=== PATIENT | female | born 1980 | race Caucasian/White ===

== ENCOUNTER 2019-12-27 15:22 | Inpatient (IN) | payer BC ==
[2019-12-27] MEDS ORDERED: Lactated Ringers 1,000 ML IV SCH (18:45)
[2019-12-27] MEDS ORDERED: Oxytocin/Normal Saline 30 UNIT/500 ML BAG IV SCH (18:45)
--- NOTE | 2019-12-27 19:38 | PCM.LDHP ---
L&D History of Present Illness - General Date of Service: 12/27/19 (admit H&P) Admit Problem/Dx: Admission Diagnosis/Problem Admission Diagnosis/Problem Source of Information: Patient, Family, Old Records, Provider, RN History Limitations: Reports: No Limitations - History of Present Illness Introduction:: Trixie is a delightful 39yo WF @ 38 weeks with high risk pregnancies presented to clinic this afternoon cervix advanced cervical dilation @ 5cm, thin, BBOW, with cxns Hx shoulder dystocia. subsequently admitted to L&D. A negative GBS negative baby active no other concerns Timing/Duration: Reports: gradual onset, intermittent, getting worse Location, : Reports: Uterus Quality: Reports: Dull, Pressure Severity: Mild Improves with: Reports: Movement Associated Symptoms: Reports: vaginal discharge - Related Data Allergies/Adverse Reactions: Allergies Allergy/AdvReac Type Severity Reaction Status Date / Time hydrocodone Allergy Nausea and Verified 12/27/19 16:48 Vomiting oxycodone Allergy Nausea and Verified 12/27/19 16:48 Vomiting seasonal Allergy Other Uncoded 12/27/19 16:48 Home Medications: Home Meds Ascorbic Acid [Vitamin C] 500 mg PO DAILY 12/27/19 [History] Ferrous Sulfate 325 mg PO DAILY 12/27/19 [History] Vit with Ca/FA/Iron [ Plus Iron] 1 tab PO DAILY 12/27/19 [History] Past 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 History 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: : 4 Para: 3 LMP (Approximate): Other OB/BYN History: hx of shoulder dystocia Hematologic History: Reports: Anemia - Past Surgical History HEENT Surgical History: Reports: Other (See Below) Other HEENT Surgeries/Procedures: wisdom teeth extraction Social & Family History - Family History Family Medical History: Noncontributory - Tobacco Use Smoking Status *Q: Never Smoker Second Hand Smoke Exposure: No - Caffeine Use Caffeine Use: Reports: Coffee - Recreational Drug Use Recreational Drug Use: No - Living Situation & Occupation Living situation: Reports: Occupation: Employed (lives with Gerardo, children--daughter and 2 sons, expecting another boy. just moved into new house. has great neighbors.) H&P Review of Systems - Review of Systems: Review Of Systems: Comprehensive ROS is negative, except as noted in HPI. L&D Exam - Exam Exam: See Below - Vital Signs Vital Signs: Last Vital Signs Temp 98.1 F 12/27/19 17:35 Pulse 79 12/27/19 19:00 Resp 16 12/27/19 19:00 BP 99/69 12/27/19 19:00 Pulse Ox Weight: 210 lb - OB Specific Contraction Duration (sec): 50-70 Contraction Frequency (min): 4-5 Contraction Intensity: Moderate - Persaud Score Persaud Score Cervix Position: Midposition Persaud Score Consistency: Soft Persaud Score Effacement: 51-70% Persaud Score Dilation: > 5 cm Persaud Score 's Station: -2 Persaud Score Total: 9 - Exam General: Alert, Oriented HEENT: PERRLA, Conjunctiva Clear, EACs Clear, EOMI, Hearing Intact, Mucosa Moist & [place], Nares Patent, Normal Nasal Septum, Posterior Pharynx Clear, TMs Clear Neck: Supple, Trachea Midline Lungs: Clear to Auscultation, Normal Respiratory Effort Cardiovascular: Regular Rate, Regular Rhythm GI/Abdominal Exam: Normal Bowel Sounds, Soft, Non-Tender, No Organomegaly, No D istention, No Abnormal Bruit, No Mass, Pelvis Stable Rectal Exam: Normal Exam Genitourinary: Normal external exam, Cervical dilitation, Enlarged uterus Back Exam: Normal Inspection, Full Range of Motion Extremities: Normal Inspection, Normal Range of Motion, Non-Tender, No Pedal Edema, Normal Capillary Refill Skin: Warm, Dry, Intact Neurological: Cranial Nerves Intact, Reflexes Equal Bilateral Psychiatric: Alert, Normal Affect, Normal Mood - Patient Data Lab Results Last 24 hrs: Laboratory Results - last 24 hr 12/27/19 12/27/19 Range/Units 15:45 16:25 WBC 9.1 (5.0-10.0) 10^3/uL RBC 3.93 L (4.2-5.4) 10^6/uL Hgb 12.5 (12.0-16.0) g/dL Hct 36.1 L (37.0-47.0) % MCV 91.9 (80-100) fL MCH 31.8 (27.0-34.0) pg MCHC 34.6 (33.0-35.0) g/dL Plt Count 265 (150-450) 10^3/uL COVID-19 (YOSSI) Negative (NEGATIVE) Result Diagrams: 12/27/19 16:25 - Problem List (1) Term SNOMED Code(s): 88304387 ICD Code: Z34.90 - ENCNTR FOR SUPRVSN OF NORMAL , UNSP, UNSP TRIMESTER Status: Acute Current Visit: Yes (2) Blood type A- SNOMED Code(s): 069999846 ICD Code: Z67.11 - TYPE A BLOOD, RH NEGATIVE Status: Acute Current Visit: Yes (3) Group B Streptococcus not isolated SNOMED Code(s): 615468564 ICD Code: AAC8195 - Status: Acute Current Visit: Yes (4) Rubella immune SNOMED Code(s): 540851601 ICD Code: Z78.9 - OTHER SPECIFIED HEALTH STATUS Status: Acute Current Visit: Yes (5) AMA (advanced maternal age) multigravida 35+ SNOMED Code(s): 464504126 ICD Code: O09.529 - SUPERVISION OF ELDERLY MULTIGRAVIDA, UNSPECIFIED TRIMESTER Status: Acute Current Visit: Yes (6) High risk due to history of previous obstetrical problem SNOMED Code(s): 15955767, 681389460 ICD Code: O09.299 - SUPRVSN OF PREG W POOR REPRODCTV OR OBSTET HISTORY, UNSP TRI Status: Acute Current Visit: Yes (7) High risk , multigravida of advanced maternal age SNOMED Code(s): 892621196, 754561698 ICD Code: O09.529 - SUPERVISION OF ELDERLY MULTIGRAVIDA, UNSPECIFIED TRIMESTER Status: Acute Current Visit: Yes (8) High-risk SNOMED Code(s): 28661846 ICD Code: O09.90 - SUPERVISION OF HIGH RISK , UNSP, UNSP TRIMESTER Status: Acute Current Visit: Yes Problem List Initiated/Reviewed/Updated: Yes Orders Last 24hrs: Active Orders 24 hr Category Date Time Status Lactated Ringers [Ringers, Lactated] 1,000 ml Med 12/27/19 18:45 Active IV ASDIRECTED Oxytocin/Normal Saline [Pitocin in NS 30 UNIT/500 ML] Med 12/27/19 18:45 Active 30 unit in 500 ml IV TITRATE Medication Orders Lactated Ringer's (Ringers, Lactated) 1,000 mls @ 125 mls/hr IV ASDIRECTED ELIER Last Admin: 12/27/19 18:10 Dose: 125 mls/hr Documented by: CHANDAN Oxytocin/Sodium Chloride (Pitocin In Ns 30 Unit/500 Ml) 30 unit in 500 mls @ 2 mls/hr IV TITRATE ELIER; Protocol Last Titration: 12/27/19 19:01 Dose: 4 munits/min, 4 mls/hr Documented by: Admin: 12/27/19 18:10 Dose: 2 munits/min, 2 mls/hr Documented by: CHANDAN Assessment/Plan Comment:: Assessment: 39yo @ 37w6d AMA high risk RI GBS negative blood type A negative advanced cervical dilation early labor Hx shoulder dystocia NST reactive/reassuring COVID negative on admit. hgb and PLT WNL Plan: admit as discussed in clinic AROM carried out with return of clear fluid pitocin IV to optimize labor pattern consider intrathecal as discussed. anticipate vaginal delivery. all questions answered. hmb
[2019-12-27] MEDS ORDERED: Ondansetron 4 MG/2 ML SDV IVPUSH PRN (21:36)
[2019-12-27] MEDS ORDERED: fentaNYL 100 MCG/2 ML SDV IVPUSH PRN (21:36)
[2019-12-27] MEDS ORDERED: Tranexamic Acid 1,000 MG in Sodium Chloride 0.9% 100 ML IV PRN (22:54)
[2019-12-27] MEDS ORDERED: Sodium Chloride 0.9% 10 ML Syringe FLUSH PRN (22:54)
[2019-12-27] MEDS ORDERED: Acetaminophen 325 MG Tab PO PRN (22:54)
[2019-12-27] MEDS ORDERED: Benzocaine/Menthol 20%-0.5% Spray 56 GM Canister TOP PRN (22:54)
[2019-12-27] MEDS ORDERED: Misoprostol 400 MCG (4 X 100 MCG TAB) RECTAL PRN (22:54)
[2019-12-27] MEDS ORDERED: Zolpidem 5 MG Tab PO PRN (22:54)
[2019-12-27] MEDS ORDERED: Carboprost Tromethamine 250 MCG/1 ML Amp IM PRN (22:54)
[2019-12-27] MEDS ORDERED: Simethicone 80 MG Tab.Chew PO PRN (22:54)
--- NOTE | 2019-12-27 23:07 | PCM.DEL ---
L & D Note - General Info Date of Service: 12/27/19 (Time of delivery 7857) Mother's Due Date: 01/11/20 (37w6d) - Delivery Note Labor: Spontaneous, Augmented by ARM, Augmented by Oxytocin Delivery Outcome: Livebirth Delivery Method: Spontaneous Vaginal Delivery-Single Delivery Mode: Spontaneous Presentation: Right Occiput Anterior (FRANCIS) Nuchal Cord: Reduced Prep: Povidone-Iodine (Betadine Anesthesia Type: None, Nitrous Oxide, Other (see below) (IV fentanyl) Amniotic Fluid Description: Clear Episiotomy Type: None Laceration: None Placenta: Intact, Expressed Cord: 3 Vessels Estimated Blood Loss: 300 Resuscitation Needed: No [place]: Suctioned, Bulb Syringe, Stimulated, Warmed, [place] Used Provider: Shawna Schwartz Score 1 min: 8 Score 5 min: 9 Second Stage Interventions: Reports: Encouragement Given, Pushing Effectively, Pushing, Pulls Own Legs Back Delivery Comments (Free Text/Narrative):: Trixie progressed to complete dilation and had a strong urge to push. was pushing in [place] position, and pulled her own legs back, which was helpful with her hx of shoulder dystocia. vertex delivered FRANCIS with one loop of nuchal cord easily reduced. left anterior shoulder slipped under the pubic bone with assistance from me and mother pushing effectively, followed by remainder of the baby boy. he was dried and stimulated and delivered to mother's chest for skin to skin contact/bonding. strong cry. cord doubly clamped, then cut by Trixie. cord blood sample obtained and order placed to be sent for cord blood work-up. placenta delivered intact with trailing membranes and was inspected and found to be complete with central cord insertion. examination of the perineum shows it to be intact. EBL 300cc fundus firm and pitocin infusing per protocol mom and baby both doing well. will follow and nursery routines. no complications. hmb Induction Criteria - Persaud Score Persaud Score Dilation: > 5 cm Persaud Score Effacement: 60-70% Persaud Score 's Station: -2 Persaud Score Consistency: Soft Persaud Score Cervix Position: Midposition Persaud Score Total: 9 Persaud Score Presenting Part: Reports: Cephalic - Induction Gestational Age >/= 39 wks: No Medical Indication: advanced cervical dilation, Hx shoulder dystocia, term, early labor/cxns, BBOW Estimated Pelvis: Reports: Adequate Reassuring Monitoring Strip: Yes Absence of Tachy Systole: Yes - Augmentation Estimated Pelvis: Reports: Adequate Weight Estimated:: Reports: AGA Reassuring Monitoring Strip: Yes Absence of Tachy Systole: Yes - General Info Date of Service: 12/27/19 (time of delivery 2216) - Patient Data Vitals - Most Recent: Last Vital Signs Temp 97.1 F 12/27/19 19:45 Pulse 67 12/27/19 19:45 Resp 16 12/27/19 19:45 BP 122/70 12/27/19 19:45 Pulse Ox Weight - Most Recent: 210 lb Lab Results Last 24 Hours: Laboratory Results - last 24 hr 12/27/19 12/27/19 Range/Units 15:45 16:25 WBC 9.1 (5.0-10.0) 10^3/uL RBC 3.93 L (4.2-5.4) 10^6/uL Hgb 12.5 (12.0-16.0) g/dL Hct 36.1 L (37.0-47.0) % MCV 91.9 (80-100) fL MCH 31.8 (27.0-34.0) pg MCHC 34.6 (33.0-35.0) g/dL Plt Count 265 (150-450) 10^3/uL COVID-19 (YOSSI) Negative (NEGATIVE) Med Orders - Current: Current Medications Acetaminophen (Tylenol) 650 mg PO Q6H PRN PRN Reason: mild pain or fever Benzocaine/Menthol (Dermoplast Pain Relief [place]) 0 gm TOP Q4H PRN PRN Reason: Perineal comfort measures Carboprost Tromethamine (Hemabate Ds) 250 mcg IM ASDIRECTED PRN PRN Reason: Excessive vaginal bleeding Docusate Sodium (Colace) 100 mg PO BID PRN PRN Reason: Constipation Fentanyl (Sublimaze) 50 mcg IVPUSH Q1H PRN PRN Reason: Pain Lactated Ringer's (Ringers, Lactated) 1,000 mls @ 125 mls/hr IV ASDIRECTED ELIER Last Admin: 12/27/19 18:10 Dose: 125 mls/hr Documented by: Oxytocin/Sodium Chloride (Pitocin In Ns 30 Unit/500 Ml) 30 unit in 500 mls @ 2 mls/hr IV TITRATE ELIER; Protocol Last Titration: 12/27/19 19:36 Dose: 6 munits/min, 6 mls/hr Documented by: Tranexamic Acid 1,000 mg/ (Sodium Chloride) 110 mls @ 660 mls/hr IV ONETIME PRN PRN Reason: Bleeding Ibuprofen (Motrin) 800 mg PO Q8H PRN PRN Reason: Mild Pain or Fever Misoprostol (Cytotec) 800 mcg RECTAL ONETIME PRN PRN Reason: Hemorrhage Ondansetron HCl (Zofran) 4 mg IVPUSH Q4H PRN PRN Reason: Nausea/Vomiting Prenat Multivit/Bates/Iron/Folic Ac ( Plus Iron) 1 each PO DAILY ELIER Simethicone (Simethicone) 80 mg PO Q4H PRN PRN Reason: Gas Sodium Chloride (Saline Flush) 10 ml FLUSH ASDIRECTED PRN PRN Reason: Keep Vein Open Witch Martina (Medi-Pads) 1 each TOP Q4HR PRN PRN Reason: Perineal Comfort Measure Zolpidem Tartrate (Ambien) 5 mg PO BEDTIME PRN PRN Reason: Insomnia - Problem List & Annotations (1) Term SNOMED Code(s): 17296350 Code(s): Z34.90 - ENCNTR FOR SUPRVSN OF NORMAL , UNSP, UNSP TRIMESTER Status: Acute Current Visit: Yes (2) Blood type A- SNOMED Code(s): 820210746 Code(s): Z67.11 - TYPE A BLOOD, RH NEGATIVE Status: Acute Current Visit: Yes (3) Group B Streptococcus not isolated SNOMED Code(s): 157717197 Code(s): ZYS4992 - Status: Acute Current Visit: Yes (4) Rubella immune SNOMED Code(s): 626054707 Code(s): Z78.9 - OTHER SPECIFIED HEALTH STATUS Status: Acute Current Visit: Yes (5) AMA (advanced maternal age) multigravida 35+ SNOMED Code(s): 673301594 Code(s): O09.529 - SUPERVISION OF ELDERLY MULTIGRAVIDA, UNSPECIFIED TRIMESTER Status: Acute Current Visit: Yes (6) High risk due to history of previous obstetrical problem SNOMED Code(s): 53745870, 310500611 Code(s): O09.299 - SUPRVSN OF PREG W POOR REPRODCTV OR OBSTET HISTORY, UNSP TRI Status: Acute Current Visit: Yes (7) High risk , multigravida of advanced maternal age SNOMED Code(s): 629510712, 051217565 Code(s): O09.529 - SUPERVISION OF ELDERLY MULTIGRAVIDA, UNSPECIFIED TRIMESTER Status: Acute Current Visit: Yes (8) High-risk SNOMED Code(s): 48438946 Code(s): O09.90 - SUPERVISION OF HIGH RISK , UNSP, UNSP TRIMESTER Status: Acute Current Visit: Yes (9) Vaginal delivery SNOMED Code(s): 726741347 Code(s): O80 - ENCOUNTER FOR FULL-TERM UNCOMPLICATED DELIVERY Status: Acute Current Visit: Yes (10) Mother currently breast-feeding SNOMED Code(s): 551688258 Code(s): Z39.1 - ENCOUNTER FOR CARE AND EXAMINATION OF LACTATING MOTHER Status: Acute Current Visit: Yes - Problem List Review Problem List Initiated/Reviewed/Updated: Yes - My Orders Last 24 Hours: My Active Orders 12/27/19 Breakfast Regular Diet [DIET] 12/27/19 Lunch Regular Diet [DIET] 12/27/19 Dinner Regular Diet [DIET] 12/27/19 18:45 Lactated Ringers [Ringers, Lactated] 1,000 ml IV ASDIRECTED Oxytocin/Normal Saline [Pitocin in NS 30 UNIT/500 ML] 30 unit in 500 ml IV TITRATE 12/27/19 21:29 Nitrous Oxide Delivery [RC] ASDIRECTED OB Discontinue Nitrous Oxide [RC] ASDIRECTED 12/27/19 21:36 Ondansetron [Zofran] 4 mg IVPUSH Q4H PRN fentaNYL [Sublimaze] 50 mcg IVPUSH Q1H PRN 12/27/19 22:54 [place] [RC] ASDIRECTED Consult to Manager Export [CONS] Routine Acetaminophen [TylenoL] 650 mg PO Q6H PRN Benzocaine/Menthol [Dermoplast Pain Relief [place]] See Dose Instructions TOP Q4H PRN Carboprost Tromethamine [Hemabate DS] 250 mcg IM ASDIRECTED PRN Docusate Sodium [Colace] 100 mg PO BID PRN Ibuprofen [Motrin] 800 mg PO Q8H PRN Simethicone 80 mg PO Q4H PRN Sodium Chloride 0.9% [Saline Flush] 10 ml FLUSH ASDIRECTED PRN Tranexamic Acid [Cyklokapron] 1,000 mg Sodium Chloride 0.9% [Normal Saline] 100 ml IV ONETIME Zolpidem [Ambien] 5 mg PO BEDTIME PRN miSOPROStoL [Cytotec] 800 mcg RECTAL ONETIME PRN witch Martina [Medi-Pads] 1 each TOP Q4HR PRN Assess Lochia [WOMSER] Per Unit Routine Assess Uterine Involution [WOMSER] Per Unit Routine Breast Pump [WOMSER] Per Unit Routine Ice Therapy [OM.PC] Per Unit Routine Perineal Care [OM.PC] Per Unit Routine Saline Lock Insert [OM.PC] Urgent Sitz Bath [OM.PC] Per Unit Routine Resuscitation Status Routine 12/27/19 22:55 Patient Status [ADT] Routine Notify Provider Vital Signs OB [RC] ASDIRECTED 12/27/19 22:56 Vital Signs [RC] PFP 12/28/19 09:00 Vit with Ca/FA/Iron [ Plus Iron] 1 each PO DAILY - Plan Plan:: Assessment: 39yo WF @ 37w6d AMA high risk RI GBS negative blood type A negative advanced cervical dilation early labor Hx shoulder dystocia NST reactive/reassuring COVID negative on admit. hgb and PLT WNL Plan: admit as discussed in clinic AROM carried out with return of clear fluid pitocin IV to optimize labor pattern consider intrathecal as discussed. anticipate vaginal delivery. all questions answered. [facility] Delivery info: 12-27-2019 @ 0384 viable male "Ravi Tejeda" APGARs 8 & 9 weight pending vaginal delivery without complication, intact perineum, unmedicated. [facility]
[2019-12-28] MEDS: Ibuprofen 800 MG Tab PO PRN ×3 (00:21→17:00)
[2019-12-28] MEDS ORDERED: Acetaminophen/Codeine 300-30 MG Tab PO PRN (07:01)
[2019-12-28] MEDS: Docusate Sodium 100 MG Cap PO PRN ×2 (07:21→22:25)
[2019-12-28] MEDS: Acetaminophen 325 MG Tab PO PRN ×3 (07:26→22:26)
[2019-12-28] MEDS: Prenatal Multivitamin with Calcium/Folic Acid/Iron Tab PO SCH (09:00)
--- NOTE | 2019-12-28 12:05 | PCM.SN.2 ---
- Free Text/Narrative Note: DOS: 12-28-2019 PPD #1 doing well. cramping a lot, especially with nursing flow ok eating voiding and ambulating well got RhoGam saline lock out. Afebrile, VSS fundus firm u-1 plan continue current cares likely home tomorrow b
[2019-12-29] MEDS: Ibuprofen 800 MG Tab PO PRN ×2 (00:55→08:41)
[2019-12-29] MEDS: Acetaminophen 325 MG Tab PO PRN ×2 (05:02→08:41)
[2019-12-29] MEDS: Prenatal Multivitamin with Calcium/Folic Acid/Iron Tab PO SCH (08:40)
[2019-12-29] MEDS: Docusate Sodium 100 MG Cap PO PRN (08:41)
--- NOTE | 2019-12-29 11:27 | PCM.DCSUM1 ---
Discharge Summary - Hospital Course Free Text/Narrative:: Trixie is a delightful 39yo G4 now P4 who delivered a viable 7lb 6oz male infant by vaginal delivery @ 37w6d over intact perineum @ 2217 on 12-27-2019 without complication. APGARs 8 & 9. nursing well. both mom and baby doing well. she has done well and is ready for discharge on PPD #2. recdieved RhoGam as baby is O+ and she is A- home 12-29-2019. hmb HPI Initial Comments: presented to clinic @ 37w6d with cxns intermittent, BBOW, 5+cm dilated with high risk , Hx shoulder dystocia, AMA, and was subsequently admitted. see admit H&P for details, along with [facility] info. [facility] Brief History: as above Diagnosis: Stroke: No - Discharge Data Discharge Date: 12/29/19 (Discharge summary) Discharge Disposition: Home, Self-Care 01 Condition: Good - Referral to Home Health Primary Care Physician: Shawna Schwartz MD - Discharge Diagnosis/Problem(s) (1) Term SNOMED Code(s): 95967352 ICD Code: Z34.90 - ENCNTR FOR SUPRVSN OF NORMAL , UNSP, UNSP TRIMESTER Status: Acute Current Visit: Yes (2) Blood type A- SNOMED Code(s): 812887412 ICD Code: Z67.11 - TYPE A BLOOD, RH NEGATIVE Status: Acute Current Visit: Yes (3) Group B Streptococcus not isolated SNOMED Code(s): 081549188 ICD Code: RYT7550 - Status: Acute Current Visit: Yes (4) Rubella immune SNOMED Code(s): 785453197 ICD Code: Z78.9 - OTHER SPECIFIED HEALTH STATUS Status: Acute Current Visit: Yes (5) AMA (advanced maternal age) multigravida 35+ SNOMED Code(s): 365701999 ICD Code: O09.529 - SUPERVISION OF ELDERLY MULTIGRAVIDA, UNSPECIFIED TRIMESTER Status: Acute Current Visit: Yes (6) High risk due to history of previous obstetrical problem SNOMED Code(s): 81465282, 560510770 ICD Code: O09.299 - SUPRVSN OF PREG W POOR REPRODCTV OR OBSTET HISTORY, UNSP TRI Status: Acute Current Visit: Yes (7) High risk , multigravida of advanced maternal age SNOMED Code(s): 251406041, 813315149 ICD Code: O09.529 - SUPERVISION OF ELDERLY MULTIGRAVIDA, UNSPECIFIED TRIMESTER Status: Acute Current Visit: Yes (8) High-risk SNOMED Code(s): 03244892 ICD Code: O09.90 - SUPERVISION OF HIGH RISK , UNSP, UNSP TRIMESTER Status: Acute Current Visit: Yes (9) Vaginal delivery SNOMED Code(s): 040419069 ICD Code: O80 - ENCOUNTER FOR FULL-TERM UNCOMPLICATED DELIVERY Status: Acute Current Visit: Yes (10) Mother currently breast-feeding SNOMED Code(s): 610856868 ICD Code: Z39.1 - ENCOUNTER FOR CARE AND EXAMINATION OF LACTATING MOTHER Status: Acute Current Visit: Yes - Patient Summary/Data Consults: Consultations 12/27/19 22:54 Consult to Client Services Assistant [CONS] Routine Hospital Course: course uneventful. afebrile VSS fundus firm flow normal did not need PP hgb cramping with nursing voiding, eating and ambulating well bonding with baby and rooming in. received RhoGam as baby O+ discharged home with routine orders and follow up instructions @ 6 weeks. all questions answered. family happy with care and plan. hmb - Patient Instructions Showering/Bathing: May Shower - Discharge Plan *PRESCRIPTION DRUG MONITORING PROGRAM REVIEWED*: Not Applicable *COPY OF PRESCRIPTION DRUG MONITORING REPORT IN PATIENT JUAN LUIS: Not Applicable Home Medications: Home Meds Ascorbic Acid [Vitamin C] 500 mg PO DAILY 12/27/19 [History] Ferrous Sulfate 325 mg PO DAILY 12/27/19 [History] Vit with Ca/FA/Iron [ Plus Iron] 1 tab PO DAILY 12/27/19 [History] Patient Handouts: Care After Vaginal Delivery Referrals: Shawna Schwartz MD [Primary Care Provider] - (Please schedule 6 week appointment. ) - Discharge Summary/Plan Comment DC Time >30 min.: No Discharge Summary/Plan Comment: 6 week check - Patient Data Vitals - Most Recent: Last Vital Signs Temp 97.7 F 12/29/19 08:00 Pulse 76 12/29/19 08:00 Resp 16 12/29/19 08:00 BP 119/65 12/29/19 08:00 Pulse Ox 100 12/29/19 08:00 Weight - Most Recent: 210 lb Med Orders - Current: Current Medications Acetaminophen (Tylenol) 650 mg PO Q4H PRN PRN Reason: Cramping Last Admin: 12/29/19 08:41 Dose: 650 mg Documented by: Acetaminophen/Codeine Phosphate (Tylenol With Codeine No.3 300mg/30mg) 2 tab PO Q4H PRN PRN Reason: Cramping Benzocaine/Menthol (Dermoplast Pain Relief [place]) 0 gm TOP Q4H PRN PRN Reason: Perineal comfort measures Last Admin: 12/28/19 00:20 Dose: 1 spray Documented by: Carboprost Tromethamine (Hemabate Ds) 250 mcg IM ASDIRECTED PRN PRN Reason: Excessive vaginal bleeding Docusate Sodium (Colace) 100 mg PO BID PRN PRN Reason: Constipation Last Admin: 12/29/19 08:41 Dose: 100 mg Documented by: Fentanyl (Sublimaze) 50 mcg IVPUSH Q1H PRN PRN Reason: Pain Last Admin: 12/27/19 21:48 Dose: 50 mcg Documented by: Lactated Ringer's (Ringers, Lactated) 1,000 mls @ 125 mls/hr IV ASDIRECTED ELIER Last Admin: 12/27/19 18:10 Dose: 125 mls/hr Documented by: Oxytocin/Sodium Chloride (Pitocin In Ns 30 Unit/500 Ml) 30 unit in 500 mls @ 2 mls/hr IV TITRATE ELIER; Protocol Last Titration: 12/28/19 01:00 Dose: 0 munits/min, 0 mls/hr Documented by: Tranexamic Acid 1,000 mg/ (Sodium Chloride) 110 mls @ 660 mls/hr IV ONETIME PRN PRN Reason: Bleeding Ibuprofen (Motrin) 800 mg PO Q8H PRN PRN Reason: Mild Pain or Fever Last Admin: 12/29/19 08:41 Dose: 800 mg Documented by: Misoprostol (Cytotec) 800 mcg RECTAL ONETIME PRN PRN Reason: Hemorrhage Ondansetron HCl (Zofran) 4 mg IVPUSH Q4H PRN PRN Reason: Nausea/Vomiting Last Admin: 12/27/19 21:48 Dose: 4 mg Documented by: Prenat Multivit/[place]/Iron/Folic Ac ( Plus Iron) 1 each PO DAILY ELIER Last Admin: 12/29/19 08:40 Dose: 1 each Documented by: Simethicone (Simethicone) 80 mg PO Q4H PRN PRN Reason: Gas Sodium Chloride (Saline Flush) 10 ml FLUSH ASDIRECTED PRN PRN Reason: Keep Vein Open Witjorge Prideel (Medi-Pads) 1 each TOP Q4HR PRN PRN Reason: Perineal Comfort Measure Last Admin: 12/28/19 02:40 Dose: 1 pad Documented by: Zolpidem Tartrate (Ambien) 5 mg PO BEDTIME PRN PRN Reason: Insomnia Discontinued Medications Acetaminophen (Tylenol) 650 mg PO Q6H PRN PRN Reason: mild pain or fever Last Admin: 12/28/19 02:54 Dose: 650 mg Documented by:
== END 2019-12-29 12:00 | disposition home or self-care (01) | DRG 560 ==
LOC: DL.OB 15:37 → OBSVTOIN 22:17 → DL.OB 22:17
PROVIDERS: ADMIT Family Medicine; ATTEND Family Medicine
PROC: 10E0XZZ Delivery of Products of Conception, External Approach (ICD-10-PCS; principal; 2019-12-27)
PROC: 10907ZC Drainage of Amniotic Fluid, Therapeutic from Products of Conception, Via Natural or Artificial Opening (ICD-10-PCS; 2019-12-27)
DX: O69.81X0 Labor and delivery complicated by cord around neck, without compression, not applicable or unspecified (principal); Z3A.37 37 weeks gestation of pregnancy; Z37.0 Single live birth; Z20.828 Contact with and (suspected) exposure to other viral communicable diseases; O99.02 Anemia complicating childbirth; D64.9 Anemia, unspecified
CPT/HCPCS: 36415; 59409; 85027; 86850; 86870; 86900; 86901; A9270-GY; J2405; J2590; J2790; J3010; J7120; U0002

== ENCOUNTER 2024-01-07 09:04 | Emergency (ER) | payer BC ==
[2024-01-07 10:44] LABS: BASOPHILS PERCENT AUTO 0.3 % (0.0-1.0); EOSINOPHILS PERCENT AUTO 0.9 % (1.0-3.0); HEMATOCRIT 40.7 % (37.0-47.0); HEMOGLOBIN 13.6 g/dL (12.0-16.0); LYMPHOCYTES PERCENT AUTO 26.3 % (20.5-50.1); MEAN CORPUSCULAR HEMOGLOBIN 31.3 pg (27.0-34.0); MEAN CORPUSCULAR HGB CONC 33.4 g/dL (33.0-35.0); MEAN CORPUSCULAR VOLUME 93.6 fL (80-100); MONOCYTES PERCENT AUTO 6.6 % (2-8); NEUTROPHILS PERCENT AUTO 65.9 % (42.2-75.2); PLATELET COUNT,PLT 243 10^3/uL (150-450); RED BLOOD CELL COUNT 4.35 10^6/uL (4.2-5.4); WHITE BLOOD CELL COUNT,WBC 7.5 10^3/uL (5.0-10.0)
[2024-01-07 11:09] LABS: ANION GAP 11.8 mEq/L (7-13); C-REACTIVE PROTEIN 2.3 ng/dL (<=0.50); CALCIUM 9.1 mg/dL (8.5-10.1); CREATININE 0.78 mg/dL (0.55-1.02); EST CRCL DRUG DOSING (CG) 92.3 mL/min; POTASSIUM,K 4.8 mmol/L (3.5-5.1)
== END 2024-01-07 12:04 | disposition home or self-care (01) ==
LOC: DL.ED 09:04
DX: H60.502 Unspecified acute noninfective otitis externa, left ear (principal); Z79.899 Other long term (current) drug therapy; Z88.5 Allergy status to narcotic agent; Z91.09 Other allergy status, other than to drugs and biological substances
CPT/HCPCS: 36415; 80048; 85025; 86140; 99283